=== PATIENT | male | born 1955 | race Caucasian/White ===

== ENCOUNTER → 2016-10-22 | Outpatient (CLI) | payer BC, MEDICARE ==
[~2016-10-22] MED LIST: ALBUTEROL 0.5ML NEB; ALBUTEROL17 GM INH; BACTRIM DS TABL1 TA1 PO; CREAM FOR PSORIASIS; DULERA 100 MCG/13 GM IH; FISH OIL SOFTGE1 CA1 PO; GARLIC500 MG PO; MILLIPRED DP5 MG PO; NEXIUM40 MG/PACK PO; SYMBICORT INH; VOLTAREN50 MG PO; ZINC PO
--- NOTE | ~2016-10-22 | CR63 ---
[facility] A Service of [facility] & [facility] RADIOLOGY TEXT RESULTS PATIENT: SANJUANA ANN LOCATION: [facility] : 59 UNIT #: [id number] AGE: [address]: Yokasta Sullivan MD SEX: M ORDER DR: [id number] [facility] [address] [place], [place] [address] [id number] O MR#: [id number] Acc #: [id number] NAME: SANJUANA ANN. : 1955 SEX: M STUDY DATE/TIME: 10/22/2016 9:58 UNIT: [facility] ROOM: STUDY DESCRIPTION: CR Chest 2 View Attending Physician: Yokasta Sullivan M.D. Referring Physician: Yokasta Sullivan M.D. Ordering Physician: Yokasta Sullivan M.D. Primary Care Physician: Yokasta Sullivan M.D. MEDICAL IMAGING REPORT This report is preliminary unless electronic signature is present EXAM PA and lateral chest DATE 10/22/2016 at 09:58 HISTORY Community-acquired pneumonia. Shortness of breath for 2 days. History of liver cancer. COMPARISON PA and lateral chest radiograph 12/13/2014. FINDINGS No acute airspace disease. Heart size is within normal limits. Stable mild asymmetric elevation of the right hemidiaphragm. No pleural effusion or pneumothorax. Pulmonary vascular distribution is normal. IMPRESSION No acute cardiopulmonary findings. Dictated by... Angelic Petersen M.D. THIS IS AN ELECTRONICALLY VERIFIED REPORT Angelic Petersen M.D. at 10/24/2016 12:05 AM VIRGEN/baljit TD: 10/22/2016 15:51 JOB #: [id number] MEDICAL IMAGING REPORT Page 1 of 1 COPY
== END | disposition home or self-care (01) ==
LOC: CRAD 09:55
DX: J18.9 Pneumonia, unspecified organism (principal)
CPT/HCPCS: 71020